=== PATIENT | female | born 2000 | race Caucasian/White ===

== ENCOUNTER 2021-07-07 13:42 | Outpatient (REF) | payer OTHER, SELFPAY ==
[2021-07-07 14:32] LABS: COVID-19 Test Positive (Negative)
== END 2021-07-07 13:43 | disposition home or self-care (01) ==
LOC: HO.LAB 13:42
PROVIDERS: Visit Provider Internal Medicine
DX: Z20.822 Contact with and (suspected) exposure to COVID-19 (principal)
CPT/HCPCS: 36415; 87635; C9803